=== PATIENT | female | born 1995 ===

== ENCOUNTER 2022-09-27 12:02 | Outpatient (CLI) | payer OTHER | END 2022-09-27 13:49 | disposition home or self-care (01) | LOC: PRENATAL 12:02 | PROVIDERS: ATTEND Obstetrics & Gynecology Maternal & Fetal Medicine | DX: O36.80X0 Pregnancy with inconclusive fetal viability, not applicable or unspecified (principal); O28.3 Abnormal ultrasonic finding on antenatal screening of mother; Z3A.14 14 weeks gestation of pregnancy ==

== ENCOUNTER 2023-11-27 18:25 | Emergency (ER) | payer OTHER ==
[~2023-11-27] VITALS: Ht 160 cm; Wt 68.9 kg
[2023-11-27 23:15] LABS: PH,URINE 6.5 (5.0-8.0); URINE APPEARANCE Clear; URINE BILIRRUBIN Negative (NEGATIVE); URINE BLOOD Negative; URINE COLOR Yellow; URINE LEUKOCYTE Trace; URINE NITRATE Negative; URINE PROTEIN Negative (NEGATIVE); URINE UROBILINOGEN 0.2 E.U./dl
[2023-11-27 23:19] LABS: URINE BACTERIA 696.7 uL (0.0-1933); URINE EPITHELIAL CELLS 26.4 uL (0.0-38.8); URINE RBC 2.4 uL (0.0-20.8); URINE WBC 51.4 uL (0.0-23.2)
[2023-11-27 23:29] LABS: URINE GLUCOSE 100 MG/DL (NEGATIVE)
[2023-11-27] MEDS ORDERED: FAMOTIDINE/PF 20 MG/2 ML VIAL IV ONE (23:45)
== END 2023-11-27 23:51 ==
LOC: ER 18:25
PROVIDERS: Nurse Practitioner Family
DX: O26.892 Other specified pregnancy related conditions, second trimester (principal); Z3A.19 19 weeks gestation of pregnancy

== ENCOUNTER 2023-12-11 13:27 | Day surgery (SDC) | payer OTHER ==
[2023-12-11 13:37] LABS: HEMATOCRIT 33.3 % (36.0-45.00); HEMOGLOBIN 11.2 g/dL (12.0-15.00); MEAN CORPUSCULAR HEMOGLOBIN 30.9 pg (27.00-32.0); MEAN CORPUSCULAR HGB CONC 33.6 g/dl (32.0-36.0); PLATELET COUNT 321 K/uL (150-450); RED BLOOD COUNT 3.62 M/uL (4.00-6.00); RED CELL DISTRIBUTION WIDTH 13.7 % (11.5-14.5)
[2023-12-11 13:43] LABS: URINE APPEARANCE Clear; URINE BILIRRUBIN Negative (NEGATIVE); URINE BLOOD Negative; URINE COLOR Yellow; URINE GLUCOSE Negative (NEGATIVE); URINE KETONE Negative (NEGATIVE); URINE LEUKOCYTE Small; URINE NITRATE Negative; URINE PROTEIN Negative (NEGATIVE); URINE UROBILINOGEN 0.2 E.U./dl
[2023-12-11 13:52] LABS: URINE BACTERIA 2291.7 uL (0.0-1933); URINE EPITHELIAL CELLS 39.2 uL (0.0-38.8); URINE RBC 66.4 uL (0.0-20.8); URINE WBC 39.7 uL (0.0-23.2)
[2023-12-11 14:12] LABS: URINE CAST 0.76 uL (0.0-1.40); URINE EPITHELIAL CELLS 0-4 /HPF
[2023-12-11 14:13] LABS: URINE CRYSTALS MODERATE /HPF
[2023-12-11 14:18] LABS: ALBUMIN 2.8 gm/dL (3.4-5.0); BILIRUBIN TOTAL 0.31 mg/dL (0.3-1.2); CREATININE SERUM 0.51 mg/dL (0.55-1.02); GFR 141.59; GLOBULINA 4.2 G/DL (2.4-3.5); POTASSIUM 3.61 mEq/L (3.5-5.1)
[2023-12-11 17:50] LABS: INR 0.96; PARTIAL THROMBOPLASTIN TIME 25.1 SECONDS (22.0-34.0); PROTHROMBIN TIME 10.1 SECONDS (9.0-11.5)
[2023-12-11] MEDS ORDERED: POVIDONE-IODINE 118 ML BOTT TOP ONE (18:30)
[2023-12-11] MEDS ORDERED: CEFAZOLIN SODIUM 1,000 MG VIAL IV ONE (18:30)
[2023-12-11] MEDS ORDERED: CHLORHEXIDINE GLUCONATE 120 ML BOTTLE TOP ONE (18:30)
[2023-12-11] MEDS ORDERED: FAMOTIDINE/PF 20 MG/2 ML VIAL IV PUSH ONE (20:45)
== END 2023-12-11 22:00 | disposition home or self-care (01) ==
LOC: CIR.AMB 13:27
PROVIDERS: ATTEND Specialist
DX: O34.32 Maternal care for cervical incompetence, second trimester (principal); Z3A.20 20 weeks gestation of pregnancy

== ENCOUNTER 2024-01-15 08:57 | Outpatient (CLI) | payer OTHER ==
[2024-01-15 09:01] VITALS: BP 131/79
[2024-01-15] MEDS ORDERED: RINGERS SOLUTION,LACTATED 1,000 ML IV SCH (09:30)
[2024-01-15] MEDS ORDERED: BETAMETHASONE ACETATE,SOD PHOS 30 MG/5 ML ML IM SCH (09:30)
[2024-01-15 10:01] LABS: PH,URINE 6.5 (5.0-8.0); URINE APPEARANCE Clear; URINE BILIRRUBIN Negative (NEGATIVE); URINE BLOOD Negative; URINE COLOR Yellow; URINE GLUCOSE Negative (NEGATIVE); URINE KETONE Negative (NEGATIVE); URINE LEUKOCYTE Negative; URINE NITRATE Negative; URINE PROTEIN Negative (NEGATIVE); URINE UROBILINOGEN 0.2 E.U./dl
[2024-01-15 10:02] LABS: URINE BACTERIA 317.4 uL (0.0-1933); URINE RBC 12.8 uL (0.0-20.8); URINE WBC 7.5 uL (0.0-23.2)
[2024-01-15 10:11] LABS: HEMATOCRIT 28.7 % (36.0-45.00); MEAN CELL VOLUME 87.2 fL (80.00-100.00); MEAN CORPUSCULAR HGB CONC 34.2 g/dl (32.0-36.0); PLATELET COUNT 264 K/uL (150-450); RED BLOOD COUNT 3.29 M/uL (4.00-6.00); RED CELL DISTRIBUTION WIDTH 13.8 % (11.5-14.5)
[2024-01-15 10:28] LABS: HEMOGLOBIN 9.8 g/dL (12.0-15.00); MEAN CORPUSCULAR HEMOGLOBIN 29.7 pg (27.00-32.0)
[2024-01-15 11:13] VITALS: BP 111/69
[2024-01-15 11:16] LABS: ALBUMIN 2.5 gm/dL (3.4-5.0); BILIRUBIN TOTAL 0.34 mg/dL (0.3-1.2); CALCIUM 8.7 mg/dL (8.5-10.1); CREATININE SERUM 0.52 mg/dL (0.55-1.02); GFR 138.46; GLOBULINA 3.8 G/DL (2.4-3.5); POTASSIUM 3.69 mEq/L (3.5-5.1); TOTAL PROTEIN 6.3 gm/dL (6.4-8.2)
[2024-01-15 15:30] VITALS: BP 110/64
[2024-01-15 20:13] VITALS: BP 99/60
[2024-01-15 23:25] VITALS: BP 96/60
[2024-01-16 03:18] VITALS: BP 93/57
[2024-01-16 06:39] VITALS: BP 83/48
[2024-01-16] MEDS ORDERED: IRON/V.C/V.B12/FOLIC A/VIT. E 1 CAPL CAPLET PO SCH (09:00)
[2024-01-16] MEDS ORDERED: BETAMETHASONE ACETATE,SOD PHOS 30 MG/5 ML ML IM SCH (09:00)
[2024-01-16] MEDS ORDERED: PNV,CALCIUM 72/IRON/FOLIC ACID 1 TAB TABLET PO SCH (09:00)
== END 2024-01-16 09:45 | disposition left against medical advice (07) ==
LOC: OBS/DEL 08:57
PROVIDERS: ATTEND Specialist
DX: O26.892 Other specified pregnancy related conditions, second trimester (principal); O26.872 Cervical shortening, second trimester; Z3A.25 25 weeks gestation of pregnancy

== ENCOUNTER 2024-04-05 08:57 | Inpatient (IN) | payer OTHER ==
[~2024-04-05] VITALS: Ht 160 cm; Wt 2.7 kg
[2024-04-05 09:02] VITALS: BP 119/80
[2024-04-05 09:22] VITALS: BP 119/80
[2024-04-05] MEDS ORDERED: RINGERS SOLUTION,LACTATED 1,000 ML IV SCH (10:00)
[2024-04-05 10:11] LABS: PH,URINE 6.5 (5.0-8.0); URINE APPEARANCE Clear; URINE BILIRRUBIN Negative (NEGATIVE); URINE BLOOD Large; URINE COLOR Yellow; URINE GLUCOSE Negative (NEGATIVE); URINE KETONE Negative (NEGATIVE); URINE LEUKOCYTE Small; URINE NITRATE Negative; URINE PROTEIN Negative (NEGATIVE); URINE UROBILINOGEN 0.2 E.U./dl
[2024-04-05 10:12] LABS: URINE BACTERIA 1184.3 uL (0.0-1933); URINE EPITHELIAL CELLS 50.3 uL (0.0-38.8); URINE RBC 615.4 uL (0.0-20.8); URINE WBC 34.1 uL (0.0-23.2)
[2024-04-05] MEDS ORDERED: PRENATAL TABLE1 EAC1 PO (10:54)
[2024-04-05 10:55] LABS: HEMATOCRIT 35.9 % (36.0-45.00); HEMOGLOBIN 11.6 g/dL (12.0-15.00); MEAN CORPUSCULAR HEMOGLOBIN 27.9 pg (27.00-32.0); MEAN CORPUSCULAR HGB CONC 32.4 g/dl (32.0-36.0); PLATELET COUNT 226 K/uL (150-450); RED BLOOD COUNT 4.17 M/uL (4.00-6.00)
[2024-04-05] MEDS ORDERED: IRON 100 PLUS1 EACH PO (10:55)
[2024-04-05 11:02] LABS: INR 0.95; PARTIAL THROMBOPLASTIN TIME 25.6 SECONDS (22.0-34.0); PROTHROMBIN TIME 10.4 SECONDS (9.0-11.5)
[2024-04-05 11:08] LABS: RED CELL DISTRIBUTION WIDTH 21.1 % (11.5-14.5)
[2024-04-05 11:52] LABS: ALBUMIN 2.6 gm/dL (3.4-5.0); BILIRUBIN TOTAL 0.48 mg/dL (0.3-1.2); CALCIUM 9.2 mg/dL (8.5-10.1); CREATININE SERUM 0.45 mg/dL (0.55-1.02); GFR 163.6; GLOBULINA 3.6 G/DL (2.4-3.5); POTASSIUM 4.14 mEq/L (3.5-5.1); TOTAL PROTEIN 6.2 gm/dL (6.4-8.2)
[2024-04-05] MEDS ORDERED: CITRIC ACID/SODIUM CITRATE 30 ML BLIST.PACK PO ONE (12:15)
[2024-04-05 12:30] VITALS: BP 123/76
[2024-04-05] MEDS ORDERED: KETOROLAC TROMETHAMINE 60 MG VIAL IM ONE (14:30)
[2024-04-05] MEDS ORDERED: MORPHINE SULFATE 4 MG/ML VIAL IV ONE ×2 (15:00→16:30)
[2024-04-05] MEDS ORDERED: CEFAZOLIN SODIUM 1,000 MG VIAL IV ONE (15:15)
[2024-04-05] MEDS ORDERED: OXYTOCIN 20 UNITS/1000ML RL PIGGYBAG IV ONE (15:15)
[2024-04-05] MEDS ORDERED: ERYTHROMYCIN BASE OPHT 1GM EACH TUBE OP ONE (15:15)
[2024-04-05] MEDS ORDERED: POVIDONE-IODINE 118 ML BOTT TOP ONE (15:15)
[2024-04-05] MEDS ORDERED: MEPERIDINE HCL/PF 50 MG/ML VIAL IV SCH ×2 (17:00)
[2024-04-05] MEDS ORDERED: PROMETHAZINE HCL 25 MG/ML AMPUL IV SCH (17:00)
[2024-04-05 18:38] VITALS: BP 108/68
[2024-04-05 21:46] LABS: HEMATOCRIT 35.3 % (36.0-45.00); HEMOGLOBIN 11.3 g/dL (12.0-15.00); MEAN CELL VOLUME 86.6 fL (80.00-100.00); MEAN CORPUSCULAR HEMOGLOBIN 27.7 pg (27.00-32.0); PLATELET COUNT 199 K/uL (150-450); RED BLOOD COUNT 4.08 M/uL (4.00-6.00); RED CELL DISTRIBUTION WIDTH 21.2 % (11.5-14.5)
[2024-04-06 00:35] VITALS: BP 109/74
[2024-04-06] MEDS ORDERED: OxyCODONE HCL/APAP UD (PERCOCET) PO SCH (08:00)
[2024-04-06 08:02] VITALS: BP 122/81
[2024-04-06] MEDS ORDERED: DOCUSATE CALCIUM 240 MG CAPSULE PO SCH (09:00)
[2024-04-06] MEDS ORDERED: SIMETHICONE 125 MG CAPSULE PO SCH (09:00)
[2024-04-06 13:00] VITALS: BP 112/72
[2024-04-06 16:57] VITALS: BP 129/75
[2024-04-07] VITALS: BP 127/82
[2024-04-07 07:48] VITALS: BP 117/79
[2024-04-07 16:05] VITALS: BP 117/72
[2024-04-07] MEDS ORDERED: IBUprofen 800 MG TABLET PO ONE (17:00)
== END 2024-04-07 18:13 | disposition home or self-care (01) | DRG 788 ==
LOC: OBS/DEL 08:57 → LDR 09:57 → OB/GYN 09:57 → O/R 13:28 → OB/GYN 16:04
PROVIDERS: ADMIT Specialist; ATTEND Specialist
PROC: 0UCC0ZZ Extirpation of Matter from Cervix, Open Approach (ICD-10-PCS; 2024-04-05)
PROC: 4A1HXCZ Monitoring of Products of Conception, Cardiac Rate, External Approach (ICD-10-PCS; 2024-04-05)
PROC: 10D00Z1 Extraction of Products of Conception, Low, Open Approach (ICD-10-PCS; principal; 2024-04-05 12:15)
DX: O32.1XX0 Maternal care for breech presentation, not applicable or unspecified (principal); Z3A.37 37 weeks gestation of pregnancy; Z37.0 Single live birth; Z20.822 Contact with and (suspected) exposure to COVID-19